=== PATIENT | male | born 1935 | race Caucasian/White ===

== ENCOUNTER 2016-10-05 12:05 | Emergency (ER) | payer MEDICARE ==
[~2016-10-05] VITALS: Ht 175.3 cm; Wt 74.5 kg
[2016-10-05 12:20] VITALS: BP 139/79; PULSE 65; RESP 16; TEMP 97.9; O2SAT 100
--- NOTE | 2016-10-05 13:20 | RADHPO ---
EXAM DATE/TIME: 10/05/2016 12:25 [place] COMPARISON: No previous studies available for comparison. INDICATIONS : Right great toe pain, no known injury. MEDICAL HISTORY : Hypercholesterolemia. SURGICAL HISTORY : None. ENCOUNTER: Initial ACUITY: 3 days PAIN SCORE: 6/10 LOCATION: Right great toe FINDINGS: Degenerative changes are seen about the 1st metatarsal phalangeal joint. Alignment is anatomic. Fra cture is not appreciated. CONCLUSION: degenerative changes without fracture or erosion. Kalin Hoffman MD FACR on October 05, 2016 at 13:05 Board Certified Radiologist. This report was verified electronically.
[2016-10-05] MEDS ORDERED: LISI2.5T3 PO (13:56)
[2016-10-05] MEDS ORDERED: ASPI1TAB69 PO (13:56)
[2016-10-05] MEDS ORDERED: [UNRECOGNIZED DRUG - OTHER] (13:56)
[2016-10-05] MEDS ORDERED: ROPI0.25 PO (13:56)
[2016-10-05] MEDS ORDERED: SULFAMETHOXAZOLE-TRIMETHOPRIM DS 800-160 MG TAB PO ONE (14:15)
[2016-10-05] MEDS ORDERED: CEPHALEXIN MONOHYDRATE 500 MG CAP PO ONE (14:15)
[2016-10-05] MEDS ORDERED: BACT800T5 PO (14:24)
[2016-10-05] MEDS ORDERED: CEPH-460 PO (14:24)
--- NOTE | 2016-10-05 14:27 | PD ---
HPI Chief Complaint: Pain: Acute or Chronic Time Seen by Provider: 13:52 Travel History International Travel<30 days: No Contact w/Intl Traveler<30days: No Traveled to known affect area: No History of Present Illness HPI Patient is a 81-year-old male who presents to emergency room for evaluation of right-sided foot pain and swelling. Patient reports that 5 days ago, he twisted his right ankle while stepping up on a curb. Reports that since then, he has noticed increased swelling to his right digits 1 and #2. Patient reports that over the past 2 days, he has noticed increased redness, warmth and swelling to his toes and to his foot. Patient was told to go to the emergency room for the urgent care today to rule out vascular compromise. Patient reports that he has not had any fevers or chills, reports that he has been going in the hot tub daily, reports no other injuries other than 5 days ago when he hurt himself by tripping on a curb. Patient reports that at that time, he did not fall or sustain any injury to his head or neck. Patient reports only history of hypertension as well as restless leg syndrome, denies history of hyperlipidemia, dvt or pe. Patient reports that his tetanus is up-to-date. Patient denies any history of vascular compromise in the past. Denies history of chest pain or shortness of breath PFSH Past Medical History Hypertension: Yes Medical other: Yes (RLS) Tetanus Vaccination: < 5 Years Influenza Vaccination: Yes Social History Alcohol Use: No Tobacco Use: No ( A TEEN) Substance Use: No Allergies-Medications (Allergen,Severity, Reaction): Coded Allergies: No Known Allergies (Unverified , 10/05/16) Reported Meds & Prescriptions Reported Meds & Active Scripts Active Bactrim DS (Sulfamethoxazole-Trimethoprim) 800-160 Mg Tab 1 Tab PO BID 10 Days Keflex (Cephalexin) 500 Mg Cap 500 Mg PO Q6H 10 Days Reported [Cholestral Med] Ropinirole 0.25 Mg Tab Unknown Dose PO HS Lisinopril 2.5 Mg Tab Unknown Dose PO DAILY Aspirin 81 Mg Tabdr 81 Mg PO DAILY Review of Systems General / Constitutional: No: Fever Eyes: No: Visual changes HENT: No: Headaches Cardiovascular: No: Chest Pain or Discomfort Respiratory: No: Shortness of Breath Gastrointestinal: No: Abdominal Pain Genitourinary: No: Dysuria Musculoskeletal: No: Pain Skin: Positive Other (erythema to toes and right foot), No Rash Neurologic: No: Weakness Psychiatric: No: Depression Endocrine: No: Polydipsia Hematologic/Lymphatic: No: Easy Bruising Physical Exam Narrative GENERAL: No acute distress, nontoxic SKIN: Focused skin assessment warm/dry. HEAD: Atraumatic. Normocephalic. EYES: Pupils equal and round. No scleral icterus. No injection or drainage. ENT: No nasal bleeding or discharge. Mucous membranes pink and moist. NECK: Trachea midline. No JVD. CARDIOVASCULAR: Regular rate and rhythm. No murmur appreciated. RESPIRATORY: No accessory muscle use. Clear to auscultation. Breath sounds equal bilaterally. GASTROINTESTINAL: Abdomen soft, non-tender, nondistended. Hepatic and splenic margins not palpable. MUSCULOSKELETAL: No obvious deformities. No clubbing. No cyanosis. Right lower extremity: Patient with redness and increased warmth to digits 1 and #2, patient with redness and warmth to dorsum of foot, patient with no neurovascular compromise, patient with good capillary refills to right foot and right toes, does appear red and cellulitic with no open areas of drainage, patient does have minimal pain with range of motion to his digits, patient with no paresthesias or numbness seen to right foot or toes, no open fractures, pulses intact. Cellulitis does go from his digits 1 and #2 to half of his foot with no streaking or no open wounds, no calf tenderness. Left lower extremity: Normal exam, tenderness NEUROLOGICAL: Awake and alert. No obvious cranial nerve deficits. Motor grossly within normal limits. Normal speech. PSYCHIATRIC: Appropriate mood and affect; insight and judgment normal. Data Data Last Documented VS Vital Signs Date Time Temp Pulse Resp B/P Pulse Ox O2 Delivery O2 Flow Rate FiO2 10/05/16 14:38 97.6 84 14 181/81 100 Room Air Orders Foot, Complete ([id number]) (10/05/16 ) Sulfamet-Trimeth Ds 800-160 Mg (Bactrim (10/05/16 14:15) Cephalexin (Keflex) (10/05/16 14:15) MDM Medical Decision Making Medical Screen Exam Complete: Yes Emergency Medical Condition: Yes Interpretation(s) Vital Signs Date Time Temp Pulse Resp B/P Pulse Ox O2 Delivery O2 Flow Rate FiO2 10/05/16 12:20 97.9 65 16 139/79 100 Differential Diagnosis Arterial thrombus, DVT, cellulitis, fracture, sprain Narrative Course Patient is a 81-year-old male who was sent to the emergency room from urgent care center for evaluation of possible thrombus to his right foot. Patient reports history of hypertension, reports that 5 days ago, he twisted his right ankle while stepping on a curb. Patient did not suffer a fall after this. Patient reports that since then, he has noticed increased swelling and pain to his right foot specifically digits #1 and 2. Reports that he has noticed increased warmth to the foot and was concerned for possible infection and did go to the urgent care center today for evaluation. Patient reports that he was told to go to the emergency room to evaluate for possible clot. On evaluation, patient does have significant redness to his right foot digits 1 and 2 and dorsum of foot. He does have palpable pulses on evaluation. Patient does have good capillary refills, increased erythema to his right foot as well as a "warmer" right foot when compared to his left foot. Patient has good range of motion to his foot with no numbness or paresthesias, I do not think that patient has an ischemic foot at this time. Patient does not have paresthesias, pain out of proportion on exam, pallor or pulselessness paralysis. Patient with most likely cellulitis. I did offer patient CAT scan of his lower extremities to evaluate for possible arterial thrombus, patient refuses this test at this time as he does have plans at 5pm and cannot stay for the CT to rule out arterial thrombus. Patient does most likely have foot cellulitis, discussed signs and symptoms for arterial thrombus. Patient does not have any calf pain, there is no swelling to his left calf, patient is low risk for DVT. Given his clinical evaluation, plan to treat for cellulitis. Discussed with him need to return to the emergency room in 48 hours for reevaluation of his foot cellulitis. Discussed signs and symptoms of when to return to the emergency room. Patient and agreeable to plan of care. They will return to ER immediately should he have return or worsening of symptoms. Diagnosis Primary Impression: Cellulitis of foot, right Patient Instructions: General Instructions Additional Instructions: Return to the emergency room in 48 hours for reevaluation of your cellulitis Return to the emergency room immediately if you develop any symptoms including: -Extreme pain to your toes or foot -No pulses to your foot -If your foot or toes turn blue and cold -If you experience pain or numbness or paresthesias to your foot or toes -If you have decreased capillary refills to your foot -If you have progression of the redness to your foot or streaking up your leg -If you develop fever/chills Complete all antibiotics as prescribed Please follow-up with your primary care doctor and 1-2 days Med/Other Pt SpecificInfo: Prescription(s) given Scripts Sulfamethoxazole-Trimethoprim (Bactrim DS)800-160 Mg Tab1 Tab PO BID 10 Days Ref 0 Prov:Jeny Anne DO 10/05/16 Cephalexin (Keflex)500 Mg [id number] Mg PO Q6H 10 Days Ref 0 Prov:Jeny Anne DO 10/05/16 Disposition: 01 DISCHARGE HOME Condition: Stable Jeny Anne DO Oct 05, 2016 14:27
[2016-10-05 14:38] VITALS: BP 181/81; PULSE 84; RESP 14; TEMP 97.6; O2SAT 100
== END 2016-10-05 14:40 | disposition home or self-care (01) ==
LOC: PHEFT 12:05
DX: L03.115 Cellulitis of right lower limb (principal); I10 Essential (primary) hypertension; Z79.899 Other long term (current) drug therapy
CPT/HCPCS: 73630; 99283